=== PATIENT | male | born 1995 | race Caucasian/White ===

== ENCOUNTER 2019-10-31 22:17 | Emergency (ER) | payer BC, OTHER ==
[2019-10-31 22:26] VITALS: TEMP 97.3; O2SAT 95
--- NOTE | 2019-10-31 22:49 | RAD ---
CLINICAL HISTORY: dorsal lateral foot pain, twisted COMPARISON: None. TECHNIQUE: XR FOOT 3 OR MORE VIEWS 10/31/2019 10:28 PM CERTIFICATION OFFICER FINDINGS: There is no fracture. Joint spaces are preserved. Soft tissues are unremarkable. IMPRESSION: No acute osseous findings. Electronically signed by: Paul Chapman MD 10/31/2019 10:47 PM CERTIFICATION OFFICER
--- NOTE | 2019-10-31 22:57 | ED.PDOC ---
History of Present Illness - General Chief Complaint: Lower Extremity Injury Stated Complaint: left foot/ankle pain Time Seen by Provider: 10/31/19 22:28 Source: patient Exam Limitations: no limitations - History of Present Illness Initial Comments: The patient is a 23-year-old male presented emergency room secondary to pain in the dorsal mid aspect of his left foot after he twisted it while playing around at home this afternoon. He did feel a pop. He does have swelling over that area. He is neurovascularly intact. No pain in the ankle or proximally. Range of motion is preserved. No obvious crepitus. Timing/Duration: 1-3 hours Severity: moderate Improving Factors: immobilization Worsening Factors: movement Associated Symptoms: denies symptoms Allergies/Adverse Reactions: Allergies NO KNOWN ALLERGY Allergy (Verified 10/31/19 22:30) Review of Systems - Review of Systems Constitutional: States: no symptoms reported EENTM: States: no symptoms reported Respiratory: States: no symptoms reported Cardiology: States: no symptoms reported Gastrointestinal/Abdominal: States: no symptoms reported Genitourinary: States: no symptoms reported Musculoskeletal: States: see HPI Skin: States: no symptoms reported Neurological: States: no symptoms reported Endocrine: States: no symptoms reported Hematologic/Lymphatic: States: no symptoms reported All other Systems: No Change from Baseline Past Medical History (General) - Patient Medical History Hx Seizures: No Hx Stroke: No Hx Dementia: No Hx Asthma: Yes Hx of COPD: No Hx Cardiac Disorders: No Hx Congestive Heart Failure: No Hx Pacemaker: No Hx Hypertension: No Hx Thyroid Disease: No Hx Diabetes: No Hx Gastroesophageal Reflux: No Hx Renal Disease: No Hx Cancer: No Hx of HIV: No Hx Hepatitis C: No Hx MRSA: No Surgical History: no surgical history - Vaccination History Hx Tetanus, Diphtheria Vaccination: No Hx Influenza Vaccination: No Hx Pneumococcal Vaccination: No - Social History Hx Tobacco Use: No Hx Chewing Tobacco Use: No Hx Alcohol Use: Yes Hx Substance Use: No Hx Substance Use Treatment: No Hx Depression: No Feels Threatened In Home Enviroment: No Feels Threatened In a Relationship: No Hx Physical Abuse: No Hx Emotional Abuse: No Hx Suspected Abuse: No - Female History Patient is a Female of Child Bearing Age (10 -59 yrs old): No Family Medical History - Family History Father Family History: Unknown Physical Exam - Physical Exam General Appearance: Alert, Comfortable, No apparent distress Eye Exam: bilateral normal Ears, Nose, Throat: hearing grossly normal Neck: full range of motion Respiratory: no respiratory distress, no accessory muscle use Cardiovascular/Chest: normal peripheral pulses, no edema Peripheral Pulses: dorsalis pedis,right: 2+, dorsalis pedis,left: 2+, posterior tibialis,right: 2+, posterior tibialis,left: 2+ Rectal Exam: deferred Extremity: normal range of motion, no calf tenderness, normal capillary refill, other - See history of present illness. Neurologic: lead technical architect II-XII nml as tested, alert, normal mood/affect, oriented x 3 Skin Exam: normal color Comments: Vital Signs - 24 hr 10/31/19 22:21 Temperature 97.3 F L Pulse Rate [L 93 H Finger] Respiratory 16 Rate Blood Pressure 164/93 [Left Arm] O2 Sat by Pulse 95 Oximetry X-ray of the left foot shows no obvious fracture or displacement. Progress - Progress Progress: 10/31/19 22:57 The patient is a 23-year-old male presented to emergency room secondary to left midfoot dorsal pain after having twisted it at home today. He does have some swelling and point tenderness to palpation. He is neurovascularly intact. X-ray shows no definitive fracture or dislocation. It is possible there may be a hairline crack at the base of the third fourth metatarsal. At the very least the patient has a significant midfoot sprain. He is going to be placed on crutches for the next 2 weeks with toe-touch weightbearing only. He can do range of motion exercises nonweightbearing. If the pain is not significantly improving over the next week to 10 days, then a repeat x-ray does need to be performed. Motrin can be used for discomfort. ER warnings are given. [email or web address] [id number] Departure - Departure Clinical Impression: Sprain of left foot Qualifiers: Encounter type: initial encounter Qualified Code(s): S93.602A - Unspecified sprain of left foot, initial encounter Disposition: Discharge to Home or Self Care Condition: Fair Departure Forms: ED Discharge - Pt. Copy, Patient Portal Self Enrollment Instructions: Foot Sprain (DC) Diet: regular diet Activity: other - Crutches Referrals: Andrey Brantley III, MD [Primary Care Provider] - 1-2 Weeks Additional Instructions: The patient is a 23-year-old male presented to emergency room secondary to left midfoot dorsal pain after having twisted it at home today. He does have some swelling and point tenderness to palpation. He is neurovascularly intact. X-ray shows no definitive fracture or dislocation. It is possible there may be a hairline crack at the base of the third fourth metatarsal. At the very least the patient has a significant midfoot sprain. He is going to be placed on crutches for the next 2 weeks with toe-touch weightbearing only. He can do range of motion exercises nonweightbearing. If the pain is not significantly improving over the next week to 10 days, then a repeat x-ray does need to be performed. Motrin can be used for discomfort. ER warnings are given.
[2019-10-31 23:00] VITALS: BP 158/92
== END 2019-10-31 23:03 | disposition home or self-care (01) ==
LOC: ER 22:17
DX: S93.602A Unspecified sprain of left foot, initial encounter (principal); J45.909 Unspecified asthma, uncomplicated; X50.9XXA Other and unspecified overexertion or strenuous movements or postures, initial encounter; Y92.009 Unspecified place in unspecified non-institutional (private) residence as the place of occurrence of the external cause; Y93.89 Activity, other specified